=== PATIENT | female | born 1950 | race Two or more races ===

== ENCOUNTER 2020-07-31 11:18 | Outpatient (CLI) | payer OTHER | END 2020-07-31 11:35 | disposition home or self-care (01) | LOC: RX STUDY 11:18 | PROVIDERS: ATTEND Internal Medicine Gastroenterology | DX: K22.8 Other specified diseases of esophagus (principal); R13.19 Other dysphagia ==

== ENCOUNTER 2022-04-05 06:20 | Inpatient (IN) | payer OTHER ==
[~2022-04-05] VITALS: Ht 165.1 cm; Wt 113.9 kg
[~2022-04-05 06:20] MED LIST: ATACAND4 MG PO; SIMVASTATIN5 MG PO; VOLTAREN ARTHRI20 GM
[2022-04-06] MEDS ORDERED: PERCOCET 5-3251 EACH PO (07:56)
[2022-04-06] MEDS ORDERED: CIPRO500 MG PO (07:56)
== END 2022-04-06 13:01 | disposition home or self-care (01) | DRG 494 ==
LOC: CIR.AMB 06:20 → SURG 21:27
PROVIDERS: ADMIT Orthopaedic Surgery; ATTEND Orthopaedic Surgery
PROC: 0PU Upper Bones, Supplement (ICD-10-PCS; 2022-04-05)
PROC: 0PSG06Z Reposition Left Humeral Shaft with Intramedullary Internal Fixation Device, Open Approach (ICD-10-PCS; principal; 2022-04-05 11:00)
DX: S42.292A Other displaced fracture of upper end of left humerus, initial encounter for closed fracture (principal); M81.0 Age-related osteoporosis without current pathological fracture; Z20.822 Contact with and (suspected) exposure to COVID-19